=== PATIENT | male | born 1980 | race Caucasian/White ===

== ENCOUNTER 2016-06-26 19:37 | Emergency (ER) | payer BC, OTHER ==
[~2016-06-26] VITALS: Ht 182.9 cm; Wt 113.4 kg
[2016-06-26] MEDS ORDERED: LIRA0.6P3 SC (21:20)
[2016-06-26] MEDS ORDERED: DAPA5TAB PO (21:20)
[2016-06-26] MEDS ORDERED: FLUO20CA25 PO (21:20)
[2016-06-26] MEDS ORDERED: ONDANSETRON 4 MG (ZOFRAN) ORAL DISSOLVE TAB PO ONE (21:30)
[2016-06-26] MEDS ORDERED: HYOSCYAMINE 0.125 MG (LEVSIN) TAB PO ONE (21:30)
[2016-06-26] MEDS ORDERED: NS IV 1000 ML 1,000 ML IV ONE ×2 (21:42→22:24)
[2016-06-26 21:50] LABS: BILIRUBIN,URINE NEGATIVE (NEGATIVE); KETONES,URINE 4+ (NEGATIVE); LEUKOCYTE ESTERASE ,URINE NEGATIVE (NEGATIVE); NITRITE,URINE NEGATIVE (NEGATIVE); PH,URINE 6 (5-9); PROTEIN,URINE 2+ (NEGATIVE); UROBILINOGEN,URINE 1 MG/DL (NORMAL)
[2016-06-26 21:54] LABS: BASOPHILS % (AUTO) 0 % (0-10); EOSINOPHILS % (AUTO) 0 % (0-10); LYMPHOCYTES # (AUTO) 1.6 X 10^3 (1.0-4.0); LYMPHOCYTES % (AUTO) 10 % (12-44); MEAN CORPUSCULAR HEMOGLOBIN 30 PG (25-34); MEAN CORPUSCULAR HGB CONC 36 G/DL (32-36); MEAN CORPUSCULAR VOLUME 83 FL (80-99); MEAN PLATELET VOLUME 9.6 FL (7.4-10.4); MONOCYTES # (AUTO) 0.7 X 10^3 (0.0-1.0); MONOCYTES % (AUTO) 4 % (0-12); NEUTROPHILS # (AUTO) 13.6 X 10^3 (1.8-7.8); NEUTROPHILS % (AUTO) 86 % (42-75); PLATELET COUNT 257 10^3/uL (130-400); RED BLOOD COUNT 5.97 10^6/uL (4.35-5.85); RED CELL DISTRIBUTION WIDTH 12.9 % (10.0-14.5); WHITE BLOOD COUNT 15.9 10^3/uL (4.3-11.0)
[2016-06-26 22:13] LABS: ALANINE AMINOTRANSFERASE 24 U/L (0-55); ALBUMIN 4.7 G/DL (3.2-4.5); AMYLASE 56 U/L (25-125); ANION GAP 19 MMOL/L (5-14); ASPARTATE AMINO TRANSFERASE 17 U/L (5-34); BILIRUBIN,TOTAL 1.6 MG/DL (0.1-1.0); BLOOD UREA NITROGEN 13 MG/DL (7-18); BUN/CREATININE RATIO 13; CARBON DIOXIDE 18 MMOL/L (21-32); CHLORIDE 105 MMOL/L (98-107); GFR ESTIMATED > 60; GLUCOSE 172 MG/DL (70-105); LIPASE 17 U/L (8-78); POTASSIUM 3.7 MMOL/L (3.6-5.0); SODIUM 142 MMOL/L (135-145); TOTAL PROTEIN 7.8 G/DL (6.4-8.2)
[2016-06-26] MEDS ORDERED: FAMOTIDINE 20MG/2ML IV (PEPCID) IV STA (22:24)
[2016-06-26] MEDS ORDERED: KETOROLAC 30 MG/ML VIAL IVP STA (22:24)
[2016-06-26 22:28] LABS: BAND NEUTROPHILS 3 %; BASOPHILS % (MANUAL) 0 %; EOSINOPHILS % (MANUAL) 0 %; LYMPHOCYTES % (MANUAL) 13 %; NEUTROPHILS % (MANUAL) 80 %
[2016-06-26] MEDS ORDERED: ONDANSETRON 4 MG/2 ML (SDV) Z0FRAN IVP ONE (22:30)
[2016-06-26] MEDS ORDERED: NS 100 ML (IVPB) BAG IV ONE (23:15)
[2016-06-26] MEDS ORDERED: IOHEXOL 350 MG/ML 100 ML (OMNIPAQUE 350) VIAL IV ONE (23:15)
[2016-06-26] MEDS ORDERED: PROM25SU43 RC (23:54)
[2016-06-26] MEDS ORDERED: ONDA8TAB9 PO (23:54)
[2016-06-26] MEDS ORDERED: HYOS0.1283 SL (23:54)
--- NOTE | 2016-06-26 23:54 | ED GI ---
General Chief Complaint: Abdominal/GI Problems Stated Complaint: N/V, CHILLS, SOA Nursing Triage Note: c/o n/v/ mid/upper cramping/dull abdominal pain since 1300 Sepsis Screen: No Definite Risk Source of Information: Patient History of Present Illness Time Seen By Provider: 21:24 Initial Comments PT ARRIVES VIA POV FROM HOME C/O NAUSEA/VOMITING SINCE 1300 TODAY-FAIRLY SUDDEN ONSET STATES HE HAS HAD UPPER ABDOMINAL PAIN / CRAMPING WELL NO DIARRHEA NO FEVER, BUT HAS HAD SUBJECTIVE SWEATS AND CHILLS C/O FEELING WEAK AND DIZZY HAS NOT EATEN ANYTHING TODAY--NOT ABLE TO KEEP ANY LIQUIDS DOWN NO VOID FOR SEVERAL HOURS NO KNOWN SICK CONTACTS OR SUSPICIOUS FOODS PT IS DIABETIC, BUT HAS NOT CHECKED HIS BLOOD GLUCOSE TODAY PCP: DR. VILLALPANDO Allergies and Home Medications Allergies Coded Allergies: No Known Drug Allergies (Unverified , 06/26/16) Home Medications Dapagliflozin Propanediol 5 Mg Tablet #30 1 TAB PO UD (Reported) Fluoxetine HCl 20 Mg Capsule #30 1 CAP PO UD (Reported) Hyoscyamine Sulfate 0.125 Mg Tab.subl #15 1-2 TAB SL Q4H Prescribed by: HARDEEP BARTLETT on 06/26/162353 Liraglutide 0.6 Mg/0.1 Ml Pen.injctr #9 1 PACKET SC UD (Reported) Ondansetron 8 Mg Tab.rapdis #14 8 MG PO Q4H Prescribed by: HARDEEP BARTLETT on 06/26/162353 Promethazine HCl 25 Mg Supp.rect #10 25 MG RC Q4H Prescribed by: HARDEEP BARTLETT on 06/26/162353 Review of Systems Constitutional: see HPI chills diaphoresis dizziness malaise weakness EENTM: No Symptoms Reported Respiratory: No Symptoms Reported Cardiovascular: No Symptoms Reported Gastrointestinal: See HPI Abdominal PainDenies Diarrhea, Nausea Poor Appetite Poor Fluid Intake Vomiting Genitourinary: See HPI (DECREASED OUTPUT) Musculoskeletal: no symptoms reported Skin: no symptoms reported Psychiatric/Neurological: No Symptoms Reported Endocrine: No Symptoms Reported Hematologic/Lymphatic: No Symptoms Reported Past Askrlxq-Qahncl-Zvzocm Hx Patient Social History Alcohol Use: Occasionally Uses Recreational Drug Use: No Smoking Status: Former Smoker (1 PPD, QUIT 2009) 2nd Hand Smoke Exposure: No Recent Foreign Travel: No Contact w/Someone Who Travel: No Recent Infectious Disease Expo: No Recent Hopitalizations: No Immunizations Up To Date Tetanus Booster (TDap): Unknown Seasonal Allergies Seasonal Allergies: No Surgeries HX Surgeries: Yes Surgeries: Adenoidectomy, Tonsillectomy Respiratory Hx Respiratory Disorders: No Cardiovascular Hx Cardiac Disorders: No Neurological Hx Neurological Disorders: No Reproductive System Hx Reproductive Disorders: No Genitourinary Hx Genitourinary Disorders: No Gastrointestinal Hx Gastrointestinal Disorders: No Musculoskeletal Hx Musculoskeletal Disorders: No Endocrine Hx Endocrine Disorders: Yes Endocrine Disorders: Diabetes, Non-Insulin dep HEENT HX ENT Disorders: No Cancer Hx Cancer: No Psychosocial Hx Psychiatric Problems: Yes Behavioral Health Disorders: Anxiety Integumentary HX Skin/Integumentary Disorder: No Blood Transfusions Hx Blood Disorders: No Adverse Reaction to a Blood Tr: No Physical Exam Vital Signs VS - Last 72 Hours, by Label 06/26/16 06/26/16 06/27/16 21:20 22:00 00:06 Temp 97.1 98.1 Pulse 70 64 69 82 105 Resp 18 18 B/P 131/86 Pulse Ox 96 97 O2 Delivery Room Air Capillary Refill : Less Than 3 Seconds General Appearance: WD/WN no apparent distress HEENT: other (ORAL MUCOSA DRY. ) Neck: normal inspection Respiratory: normal breath sounds no respiratory distress no accessory muscle use Cardiovascular: normal peripheral pulses regular rate, rhythm no edema no JVD no murmur Gastrointestinal: normal bowel sounds soft no organomegaly no pulsatile massNo distended, No guarding, No rebound, tenderness (DIFFUSE UPPER ABDOMINAL TENDERNESS)No hernia, No mass Extremities: normal inspection Back: normal inspection no CVA tenderness Neurologic/Psychiatric: no motor/sensory deficits alert normal mood/affect oriented x 3 Skin: warm/dry pallor Progress/Results/Core Measures Results/Orders Lab Results Laboratory Tests Test 06/26/16 21:15 06/26/16 21:49 06/26/16 21:50 Range/Units Urine Bacteria NONE /HPF Urine Bilirubin NEGATIVE NEGATIVE Urine Casts NONE /LPF Urine Clarity CLEAR Urine Color YELLOW Urine Crystals NONE /LPF Urine Culture Indicated NO Urine Glucose (UA) 1+ H NEGATIVE Urine Ketones 4+ H NEGATIVE Urine Leukocyte Esterase NEGATIVE NEGATIVE Urine Mucus SMALL H /LPF Urine Nitrite NEGATIVE NEGATIVE Urine Protein 2+ H NEGATIVE Urine RBC NONE /HPF Urine RBC (Auto) NEGATIVE NEGATIVE Urine Specific [place] 1.020 1.016-1.022 Urine Urobilinogen 1 NORMAL MG/DL Urine WBC NONE /HPF Urine pH 6 5-9 Glucometer 157 H 70-110 MG/DL Alanine Aminotransferase (ALT/SGPT) 24 0-55 U/L Albumin 4.7 H 3.2-4.5 G/DL Alkaline Phosphatase 52 40-136 U/L Amylase Level 56 25-125 U/L Anion Gap 19 H 5-14 MMOL/L Aspartate Amino Transf (AST/SGOT) 17 5-34 U/L BUN/Creatinine Ratio 13 Band Neutrophils 3 % Basophils # (Auto) 0.0 0.0-0.1 10^3/uL Basophils % (Manual) 0 % Basophils (%) (Auto) 0 0-10 % Blood Morphology Comment NORMAL Blood Urea Nitrogen 13 7-18 MG/DL Calcium Level 10.0 8.5-10.1 MG/DL Carbon Dioxide Level 18 L 21-32 MMOL/L Chloride Level 105 98-107 MMOL/L Creatinine 1.00 0.60-1.30 MG/DL Eosinophils # (Auto) 0.0 0.0-0.3 10^3/uL Eosinophils % (Manual) 0 % Eosinophils (%) (Auto) 0 0-10 % Estimat Glomerular Filtration Rate > 60 Glucose Level 172 H 70-105 MG/DL Hematocrit 50 40-54 % Hemoglobin 17.7 13.3-17.7 G/DL Lipase 17 8-78 U/L Lymphocytes # (Auto) 1.6 1.0-4.0 X 10^3 Lymphocytes % (Manual) 13 % Lymphocytes (%) (Auto) 10 L 12-44 % Mean Corpuscular Hemoglobin 30 25-34 PG Mean Corpuscular Hemoglobin Concent 36 32-36 G/DL Mean Corpuscular Volume 83 80-99 FL Mean Platelet Volume 9.6 7.4-10.4 FL Monocytes # (Auto) 0.7 0.0-1.0 X 10^3 Monocytes % (Manual) 4 % Monocytes (%) (Auto) 4 0-12 % Neutrophils # (Auto) 13.6 H 1.8-7.8 X 10^3 Neutrophils % (Manual) 80 % Neutrophils (%) (Auto) 86 H 42-75 % Platelet Count 257 130-400 10^3/uL Potassium Level 3.7 3.6-5.0 MMOL/L Red Blood Count 5.97 H 4.35-5.85 10^6/uL Red Cell Distribution Width 12.9 10.0-14.5 % Sodium Level 142 135-145 MMOL/L Total Bilirubin 1.6 H 0.1-1.0 MG/DL Total Protein 7.8 6.4-8.2 G/DL White Blood Count 15.9 H 4.3-11.0 10^3/uL My Orders Orders-HARDEEP BARTLETT DO Hyoscyamine Sl Tablet (Levsin Sl Tablet) (06/26/16 21:30) Ondansetron Oral Dissolve Tab (Zofran (06/26/16 21:30) Orthostatic Vital Signs (06/26/16 21:26) Accucheck Stat ONCE (06/26/16 21:42) Saline Lock/Iv-Start (06/26/16 21:42) Amylase (06/26/16 21:42) Cbc With Automated Diff (06/26/16 21:42) Comprehensive Metabolic Panel (06/26/16 21:42) Lipase (06/26/16 21:42) Ua Culture If Indicated (06/26/16 21:42) Saline Lock/Iv-Start (06/26/16 21:42) Ns Iv 1000 Ml (Sodium Chloride 0.9%) (06/26/16 21:42) Manual Differential (06/26/16 21:50) Ct Abdomen/Pelvis W (06/26/16 22:22) Ketorolac Injection (Toradol Injection) (06/26/16 22:24) Ondansetron Injection (Zofran Injectio (06/26/16 22:30) Famotidine Injection (Pepcid Injection) (06/26/16 22:24) Saline Lock/Iv-Start (06/26/16 22:24) Ns Iv 1000 Ml (Sodium Chloride 0.9%) (06/26/16 22:24) Iohexol Injection (Omnipaque 350 Mg/Ml 1 (06/26/16 23:15) Ns (Ivpb) (Sodium Chloride 0.9% Ivpb Bag (06/26/16 23:15) Rx-Hyoscyamine Tab (Rx-Levsin Sl) (06/27/16 00:23) Rx-Ondansetron Po (Rx-Zofran Po) (06/27/16 00:23) Rx-Promethazine Hcl (Rx-Phenergan Supp) (06/27/16 00:23) Medications Given in ED Current Medications Medications Dose Ordered Sig/Larisa Route Start Time Stop Time Status Last Admin Dose Admin Hyoscyamine Sulfate 0.125 mg ONCE ONCE PO 06/26/16 21:30 06/26/16 21:31 DC 06/26/16 21:42 0.125 MG Iohexol 100 ml ONCE ONCE IV 06/26/16 23:15 06/26/16 23:16 DC 06/26/16 23:18 100 ML Ondansetron HCl 4 mg 4 mg ONCE ONCE IVP 06/26/16 22:30 06/26/16 22:31 DC 06/26/16 22:34 4 MG Ondansetron HCl 4 mg 4 mg ONCE ONCE PO 06/26/16 21:30 06/26/16 21:31 DC 06/26/16 21:42 4 MG Sodium Chloride 100 ml ONCE ONCE IV 06/26/16 23:15 06/26/16 23:16 DC 06/26/16 23:18 80 ML Sodium Chloride 1,000 ml @ 0 mls/hr Q0M ONCE IV 06/26/16 21:42 06/26/16 21:43 DC 06/26/16 21:45 0 MLS/HR Sodium Chloride 1,000 ml @ 0 mls/hr Q0M ONCE IV 06/26/16 22:24 06/26/16 22:26 DC 06/26/16 22:34 0 MLS/HR Vital Signs/I&O Vital Sign - Last 12Hours 06/26/16 06/26/16 06/27/16 21:20 22:00 00:06 Temp 97.1 98.1 Pulse 70 64 69 82 105 Resp 18 18 B/P 131/86 Pulse Ox 96 97 O2 Delivery Room Air Intake and Output 06/27/16 00:00 Intake Total 2000 ml Balance 2000 ml Blood Pressure Mean: 101 Point of Care Testing Finger Stick Blood Glucose: 157 Blood Glucose Action Taken: RN AWARE Progress Note : Progress Note NO VOMITING DURING ER STAY PAIN AND NAUSEA RESOLVED AT DISMISSAL PT TOLERATING ICE CHIPS AND SIPS OF WATER PRIOR TO DISMISSAL Diagnostic Imaging Comments CT ABDOMEN/PELVIS--NO ACUTE PROCESS, FATTY LIVER. PER [facility] VIA FAX @ 2272 Reviewed: Reviewed by Me Departure Impression Impression: Primary Impression: Gastroenteritis Disposition: 01 HOME, SELF-CARE Condition: Improved Departure-Patient Inst. Referrals: AMRITA VILLALPANDO MD (PCP/Family) Primary Care Physician Patient Instructions: Viral Gastroenteritis, Adult (DC) Add. Discharge Instructions: CLEAR LIQUIDS--WATER, BROTH, JELLO, GATORADE BRATS DIET--BANANAS, RICE, APPLESAUCE, TOAST, SALTINES FOLLOW UP WITH YOUR DR IN 1-2 DAYS IF NO BETTER RETURN TO ER IF WORSE All discharge instructions reviewed with patient and/or family. Voiced understanding. Scripts Hyoscyamine Sulfate (Levsin-Sl)0.125 Mg Tab.subl1-2 Tab SL Q4H Abdominal Pain # 15 TAB Prov:HARDEEP BARTLETT DO 06/26/16 Promethazine HCl (Phenergan)25 Mg Supp.rect25 Mg RC Q4H Nausea/Vomiting #10 SUPP.RECT Prov:HARDEEP BARTLETT DO 06/26/16 Ondansetron (Zofran Odt)8 Mg Tab.rapdis8 Mg PO Q4H Nausea/Vomiting #14 TAB Prov:HARDEEP BARTLETT DO 06/26/16 HARDEEP BARTLETT DO Jun 26, 2016 23:54
[2016-06-27 00:06] VITALS: BP 135/83
[2016-06-27] MEDS ORDERED: RX-PHENERGAN 25 MG SUPP PPK#3 PR STA (00:23)
[2016-06-27] MEDS ORDERED: RX-ONDANSETRON 4 MG ODT (ZOFRAN) PPK #4 PO STA (00:23)
[2016-06-27] MEDS ORDERED: RX-HYOSCYAMINE 0.125 MG SL (LEVSIN) PPK#6 SL STA (00:23)
--- NOTE | 2016-06-27 06:56 | Diagnostic Imaging Report ---
PROCEDURE: CT abdomen and pelvis with contrast. TECHNIQUE: Multiple contiguous axial images were obtained through the abdomen and pelvis after administration of intravenous contrast. INDICATION: Nausea, vomiting. FINDINGS: The appendix visualized and normal. There are few noninflamed diverticuli of the sigmoid. No ascites, abscess, hematoma or other fluid collection. Some fluid within the small bowel lumen without obstructive features. There is some fluid in the gastric lumen without wall thickening or perigastric edema. Findings nonspecific but raise the question of nonspecific gastroenteritis correlate clinically. The liver, gallbladder, bile ducts, spleen, adrenals and pancreas all nonacute. The aortoiliac and mesenteric vessels patent and nonaneurysmal. Prostate, seminal vesicles and urinary bladder unremarkable. IMPRESSION: Negative appendix. Fluid within the stomach and small bowel raising the question of gastroenteritis. No obstructive features or findings of viscus perforation. No ascites or fluid collection. Dictated by: Dictated on workstation # [id number]
== END 2016-06-27 00:05 | disposition home or self-care (01) ==
LOC: ER 19:40
DX: K52.9 Noninfective gastroenteritis and colitis, unspecified (principal); E11.9 Type 2 diabetes mellitus without complications; Z79.84 Long term (current) use of oral hypoglycemic drugs; Z87.891 Personal history of nicotine dependence
CPT/HCPCS: 36415; 74177; 80053; 81000; 82150; 82962; 83690; 85007; 85027; 96361; 96374; 96375

== ENCOUNTER 2017-05-17 23:25 | Emergency (ER) | payer BC ==
[~2017-05-17] VITALS: Ht 182.9 cm; Wt 104.3 kg
[~2017-05-17 23:25] MED LIST: DAPA5TAB PO; FLUO20CA25 PO; HYOS0.1283 SL; LIRA0.6P3 SC; ONDA8TAB9 PO; PROM25SU43 RC
[2017-05-17] MEDS ORDERED: NS IV 1000 ML 1,000 ML IV ONE (23:46)
[2017-05-18] MEDS ORDERED: ONDANSETRON 4 MG/2 ML (SDV) Z0FRAN IVP ONE
[2017-05-18 00:14] LABS: BILIRUBIN,URINE NEGATIVE (NEGATIVE); KETONES,URINE 4+ (NEGATIVE); LEUKOCYTE ESTERASE ,URINE 2+ (NEGATIVE); NITRITE,URINE NEGATIVE (NEGATIVE); PH,URINE 5 (5-9); PROTEIN,URINE 1+ (NEGATIVE); UROBILINOGEN,URINE 1 MG/DL (NORMAL)
[2017-05-18 00:16] LABS: BASOPHILS # (AUTO) 0.1 10^3/uL (0.0-0.1); BASOPHILS % (AUTO) 0 % (0-10); EOSINOPHILS # (AUTO) 0.3 10^3/uL (0.0-0.3); EOSINOPHILS % (AUTO) 1 % (0-10); LYMPHOCYTES # (AUTO) 3.2 X 10^3 (1.0-4.0); LYMPHOCYTES % (AUTO) 16 % (12-44); MEAN CORPUSCULAR HEMOGLOBIN 30 PG (25-34); MEAN CORPUSCULAR HGB CONC 35 G/DL (32-36); MEAN CORPUSCULAR VOLUME 85 FL (80-99); MEAN PLATELET VOLUME 9.9 FL (7.4-10.4); MONOCYTES # (AUTO) 0.9 X 10^3 (0.0-1.0); MONOCYTES % (AUTO) 4 % (0-12); NEUTROPHILS # (AUTO) 15.5 X 10^3 (1.8-7.8); NEUTROPHILS % (AUTO) 78 % (42-75); PLATELET COUNT 238 10^3/uL (130-400); RED BLOOD COUNT 5.63 10^6/uL (4.35-5.85); RED CELL DISTRIBUTION WIDTH 12.5 % (10.0-14.5); WHITE BLOOD COUNT 19.9 10^3/uL (4.3-11.0)
[2017-05-18 00:22] LABS: SQUAMOUS EPITHELIAL CELL,UR RARE /HPF; WBC,URINE 0-2 /HPF
[2017-05-18 00:33] LABS: BAND NEUTROPHILS 1 %; BASOPHILS % (MANUAL) 0 %; EOSINOPHILS % (MANUAL) 0 %; LYMPHOCYTES % (MANUAL) 6 %; NEUTROPHILS % (MANUAL) 79 %; REACTIVE LYMPHOCYTES 8 %
[2017-05-18 00:39] LABS: ALANINE AMINOTRANSFERASE 28 U/L (0-55); ALBUMIN 4.6 GM/DL (3.2-4.5); ANION GAP 15 MMOL/L (5-14); ASPARTATE AMINO TRANSFERASE 18 U/L (5-34); BLOOD UREA NITROGEN 10 MG/DL (7-18); BUN/CREATININE RATIO 12; CALCIUM 9.5 MG/DL (8.5-10.1); CARBON DIOXIDE 18 MMOL/L (21-32); CHLORIDE 110 MMOL/L (98-107); CREATININE SERUM 0.83 MG/DL (0.60-1.30); GFR ESTIMATED > 60; GLUCOSE 189 MG/DL (70-105); MAGNESIUM 1.9 MG/DL (1.8-2.4); POTASSIUM 3.7 MMOL/L (3.6-5.0); SODIUM 143 MMOL/L (135-145); TOTAL PROTEIN 7.4 GM/DL (6.4-8.2)
[2017-05-18] MEDS ORDERED: PROMETHAZINE INJ 25 MG/ML (PHENERGAN) AMP IVP STA (01:26)
[2017-05-18] MEDS ORDERED: NS IV 1000 ML 1,000 ML IV STA (01:26)
[2017-05-18] MEDS ORDERED: HYOSCYAMINE 0.125 MG (LEVSIN) TAB SL ONE (01:45)
--- NOTE | 2017-05-18 01:46 | ED General ---
General Chief Complaint: General Problems/Pain Stated Complaint: N/V Nursing Triage Note: PT TO ED 10 W/ PARENT FOR C/O NAUSEA, DRY HEAVES, SWEATING, CHILLING ONSET 1999 THIS EVENING. NO OTHER C/O VOICED Nursing Sepsis Screen: No Definite Risk Source of Information: Patient Exam Limitations: No Limitations History of Present Illness Time Seen by Provider: 00:40 Initial Comments Here with report of acute onset of nausea, vomiting, chills and sweating that started at about 8 p.m. and persisted since. Has history of similar episodes twice this year. Patient is a diabetic and has been told that he might have gastroparesis. States that he feels like there is a pit and his stomach with report of nausea and the dry heaves. He was unable to eat dinner. All of this was exacerbated when he went to the restaurant [employer] and it was very hot and there and then he started getting the nausea and dry heaves. This has not resolved yet. Denies breathing problems or chest pain. Timing/Duration: 4-6 Hours Severity: Moderate, Severe Associated Systoms: No Chest Pain, Diaphoresis, Fever/Chills, Nausea/Vomiting, No Shortness of Air, No Weakness Allergies and Home Medications Allergies Coded Allergies: No Known Drug Allergies (Unverified , 06/26/16) Home Medications Dapagliflozin Propanediol 5 Mg Tablet, 1 TAB PO UD, #30 (Reported) Fluoxetine HCl 20 Mg Capsule, 1 CAP PO UD, #30 (Reported) Hyoscyamine Sulfate 0.125 Mg Tab.subl, 1-2 TAB SL Q4H, #15 Prescribed by: HARDEEP BARTLETT on 06/26/162353 Liraglutide 0.6 Mg/0.1 Ml Pen.injctr, 1 PACKET SC UD, #9 (Reported) Ondansetron 8 Mg Tab.rapdis, 8 MG PO Q4H, #14 Prescribed by: HARDEEP BARTLETT on 06/26/162353 Promethazine HCl 25 Mg Supp.rect, 25 MG RC Q4H, #10 Prescribed by: HARDEEP BARTLETT on 06/26/164 Constitutional: see HPI, chills, diaphoresis, No fever EENTM: no symptoms reported Respiratory: no symptoms reported Cardiovascular: no symptoms reported Gastrointestinal: see HPI, abdominal pain, No constipation, No diarrhea, nausea , vomiting Genitourinary: no symptoms reported Musculoskeletal: no symptoms reported Skin: no symptoms reported All Other Systems Reviewed Negative Unless Noted: Yes Past Jdeslrh-Qulsyo-Ncpzyw Hx Patient Social History Alcohol Use: Denies Use Recreational Drug Use: No Smoking Status: Never a Smoker 2nd Hand Smoke Exposure: No Recent Foreign Travel: No Contact w/Someone Who Travel: No Recent Infectious Disease Expo: No Recent Hopitalizations: No Physical Abuse: No Sexual Abuse: No Mistreated: No Fear: No Immunizations Up To Date Tetanus Booster (TDap): Unknown Seasonal Allergies Seasonal Allergies: No Surgeries History of Surgeries: Yes Surgeries: Adenoidectomy, Tonsillectomy Respiratory History of Respiratory Disorde: No Cardiovascular History of Cardiac Disorders: No Neurological History of Neurological Disord: No Reproductive System Hx Reproductive Disorders: No Gastrointestinal History of Gastrointestinal Di: No Musculoskeletal History of Musculoskeletal Dis: No Endocrine History of Endocrine Disorders: Yes Endocrine Disorders: Diabetes, Non-Insulin dep Cancer History of Cancer: No Psychosocial History of Psychiatric Problem: Yes Behavioral Health Disorders: Anxiety Suicide Risk Score: 0 Integumentary History of Skin or Integumenta: No Blood Transfusions History of Blood Disorders: No Adverse Reaction to a Blood Tr: No Reviewed Nursing Assessment Reviewed/Agree w Nursing PMH: Yes Family Medical History Significant Family History: No Pertinent Family Hx Physical Exam Vital Signs Vital Sign - Last 12Hours 05/17/17 23:40 Temp 93.7 Pulse 68 Resp 20 B/P (MAP) 163/91 (115) Pulse Ox 99 O2 Delivery Room Air Capillary Refill : Less Than 3 Seconds General Appearance: WD/WN, Mild Distress HEENT: PERRL/EOMI, Pharynx Normal Neck: Non Tender, Supple Respiratory: Lungs Clear, Normal Breath Sounds Cardiovascular: Regular Rate, Rhythm, No Murmur Gastrointestinal: Normal Bowel Sounds, Soft, Tenderness (epigastric region) Back: Normal Inspection, No CVA Tenderness, No Vertebral Tenderness Extremity: Normal Range of Motion, Non Tender, No Calf Tenderness Neurologic/Psychiatric: Alert, Oriented x3, Normal Mood/Affect Skin: Normal Color, Warm/Dry Progress/Results/Core Measures Suspected Sepsis Recent Fever Within 48 Hours: No Infection Criteria Present: None New/Unexplained Altered Menta: No Sepsis Screen: No Definite Risk Sepsis Diagnosis: SIRS Temperature:93.7 Pulse: 68 Respiratory Rate: 20 Laboratory Tests 05/18/17 00:07: White Blood Count 19.9H Blood Pressure 163 /91 Mean: 115 Laboratory Tests 05/18/17 00:07: Creatinine 0.83, Platelet Count 238, Total Bilirubin 1.0 Results/Orders Lab Results Laboratory Tests Test 05/17/17 23:54 05/18/17 00:04 05/18/17 00:07 Range/Units Glucometer 177 H 70-110 MG/DL Urine Color YELLOW Urine Clarity SLIGHTLY CLOUDY Urine pH 5 5-9 Urine Specific [place] 1.020 1.016-1.022 Urine Protein 1+ H NEGATIVE Urine Glucose (UA) NEGATIVE NEGATIVE Urine Ketones 4+ H NEGATIVE Urine Nitrite NEGATIVE NEGATIVE Urine Bilirubin NEGATIVE NEGATIVE Urine Urobilinogen 1 NORMAL MG/DL Urine Leukocyte Esterase 2+ H NEGATIVE Urine RBC (Auto) NEGATIVE NEGATIVE Urine RBC NONE /HPF Urine WBC 0-2 /HPF Urine Squamous Epithelial Cells RARE /HPF Urine Crystals NONE /LPF Urine Bacteria TRACE /HPF Urine Casts NONE /LPF Urine Mucus SMALL H /LPF Urine Culture Indicated NO White Blood Count 19.9 H 4.3-11.0 10^3/uL Red Blood Count 5.63 4.35-5.85 10^6/uL Hemoglobin 17.0 13.3-17.7 G/DL Hematocrit 48 40-54 % Mean Corpuscular Volume 85 80-99 FL Mean Corpuscular Hemoglobin 30 25-34 PG Mean Corpuscular Hemoglobin Concent 35 32-36 G/DL Red Cell Distribution Width 12.5 10.0-14.5 % Platelet Count 238 130-400 10^3/uL Mean Platelet Volume 9.9 7.4-10.4 FL Neutrophils (%) (Auto) 78 H 42-75 % Lymphocytes (%) (Auto) 16 12-44 % Monocytes (%) (Auto) 4 0-12 % Eosinophils (%) (Auto) 1 0-10 % Basophils (%) (Auto) 0 0-10 % Neutrophils # (Auto) 15.5 H 1.8-7.8 X 10^3 Lymphocytes # (Auto) 3.2 1.0-4.0 X 10^3 Monocytes # (Auto) 0.9 0.0-1.0 X 10^3 Eosinophils # (Auto) 0.3 0.0-0.3 10^3/uL Basophils # (Auto) 0.1 0.0-0.1 10^3/uL Neutrophils % (Manual) 79 % Lymphocytes % (Manual) 6 % Monocytes % (Manual) 6 % Eosinophils % (Manual) 0 % Basophils % (Manual) 0 % Band Neutrophils 1 % Reactive Lymphocytes 8 % Blood Morphology Comment NORMAL Sodium Level 143 135-145 MMOL/L Potassium Level 3.7 3.6-5.0 MMOL/L Chloride Level 110 H 98-107 MMOL/L Carbon Dioxide Level 18 L 21-32 MMOL/L Anion Gap 15 H 5-14 MMOL/L Blood Urea Nitrogen 10 7-18 MG/DL Creatinine 0.83 0.60-1.30 MG/DL Estimat Glomerular Filtration Rate > 60 BUN/Creatinine Ratio 12 Glucose Level 189 H 70-105 MG/DL Calcium Level 9.5 8.5-10.1 MG/DL Magnesium Level 1.9 1.8-2.4 MG/DL Total Bilirubin 1.0 0.1-1.0 MG/DL Aspartate Amino Transf (AST/SGOT) 18 5-34 U/L Alanine Aminotransferase (ALT/SGPT) 28 0-55 U/L Alkaline Phosphatase 53 40-136 U/L Total Protein 7.4 6.4-8.2 GM/DL Albumin 4.6 H 3.2-4.5 GM/DL Micro Results Microbiology 05/17/17 Influenza Types A,B Antigen (KAELYN) - Final, Complete My Orders Orders - KENTON ACOSTA MD Saline Lock/Iv-Start (05/17/17 23:46) Ns Iv 1000 Ml (Sodium Chloride 0.9%) (05/17/17 23:46) Cbc With Automated Diff (05/17/17 23:46) Comprehensive Metabolic Panel (05/17/17 23:46) Magnesium (05/17/17 23:46) Ua Culture If Indicated (05/17/17 23:46) Influenza A And B Antigens (05/17/17 23:46) Ondansetron Injection (Zofran Injectio (05/18/17 00:00) Manual Differential (05/18/17 00:07) Promethazine Injection (Phenergan Injec (05/18/17 01:26) Ns Iv 1000 Ml (Sodium Chloride 0.9%) (05/18/17 01:26) Hyoscyamine Sl Tablet (Levsin Sl Tablet) (05/18/17 01:45) Medications Given in ED Current Medications Medications Dose Ordered Sig/Larisa Route Start Time Stop Time Status Last Admin Dose Admin Hyoscyamine Sulfate 0.125 mg ONCE ONCE SL 05/18/17 01:45 05/18/17 01:46 DC 05/18/17 01:46 0.125 MG Ondansetron HCl 4 mg ONCE ONCE IVP 05/18/17 00:00 05/18/17 00:01 DC 05/18/17 00:15 4 MG Sodium Chloride 1,000 ml @ 0 mls/hr Q0M ONCE IV 05/17/17 23:46 05/17/17 23:48 DC 05/18/17 00:07 1,000 MLS/HR Vital Signs/I&O Vital Sign - Last 12Hours 05/17/17 23:40 Temp 93.7 Pulse 68 Resp 20 B/P (MAP) 163/91 (115) Pulse Ox 99 O2 Delivery Room Air Capillary Refill : Less Than 3 Seconds Blood Pressure Mean: 115 Progress Note : Progress Note Seen and evaluated. IV, labs and UA ordered. Fingerstick blood sugar ordered. Normal saline 1 L bolus. Zofran 4 mg IV ordered. Monitor patient. Repeat normal saline 1 L bolus, Phenergan 25 mg IV for persistent nausea and Levsin 0.125 milligrams by mouth for cramping. Monitor patient. 0230: Patient states he is much better now. Discharge home with return precautions. Patient verbalize understanding instructions and agreement with plan. Departure Impression Impression: Primary Impression: Nausea and vomiting Qualified Codes: R11.2 - Nausea with vomiting, unspecified Additional Impression: Epigastric abdominal pain Disposition: HOME, SELF-CARE Condition: Improved Departure-Patient Inst. Decision time for Depature: 02:39 Referrals: AMRITA VILLALPANDO MD (PCP/Family) Primary Care Physician Patient Instructions: Gastroparesis (Delayed Gastric Emptying) (DC), Nausea and Vomiting, Adult (DC) Add. Discharge Instructions: All discharge instructions reviewed with patient and/or family. Voiced understanding. Clear liquid diet for 24 hours and then advance as tolerated. Follow-up with your DrTamica in one to 2 days for recheck and further evaluation. Return for worse pain, fever, vomiting, weakness, breathing problems or other concerns as needed. Scripts Ondansetron (Ondansetron Odt) 4 Mg Tab.rapdis 4 MG PO Q6H Y for NAUSEA/VOMITING, #8 TAB 0 Refills Prov: KENTON ACOSTA MD 05/18/17 Hyoscyamine Sulfate (Levsin-Sl) 0.125 Mg Tab.subl 0.125 MG SL Q4H, #10 TAB 0 Refills Prov: KENTON ACOSTA MD 05/18/17 Copy Copies To 1: AMRITA VILLALPANDO MD, TIMOTHY D MD May 18, 2017 01:45
[2017-05-18] MEDS ORDERED: RX-ONDANSETRON 4 MG ODT (ZOFRAN) PPK #4 PO STA (02:37)
[2017-05-18] MEDS ORDERED: HYOS0.1283 SL (02:41)
[2017-05-18] MEDS ORDERED: ONDA4TAB11 PO (02:41)
[2017-05-18 02:44] VITALS: BP 141/88
== END 2017-05-18 02:44 | disposition home or self-care (01) ==
LOC: EDUNIT# 23:25 → ER 23:28
DX: R11.2 Nausea with vomiting, unspecified (principal); R10.13 Epigastric pain; E11.9 Type 2 diabetes mellitus without complications; F41.9 Anxiety disorder, unspecified; Z90.89 Acquired absence of other organs
CPT/HCPCS: 36415; 80053; 81000; 82962; 83735; 85007; 85027; 87804; 96361; 96374; 96375

== ENCOUNTER → 2017-07-13 | Outpatient (CLI) | payer BC ==
[~2017-07-13] MED LIST changes: +IOHEXOL 350 MG/ML 100 ML (OMNIPAQUE 350) VIAL IV ONE; +NS 250 ML (IVPB) BAG IV ONE; +ONDA4TAB11 PO
--- NOTE | 2017-07-13 13:15 | Diagnostic Imaging Report ---
PROCEDURE: CT abdomen and pelvis with contrast. TECHNIQUE: Multiple contiguous axial images were obtained through the abdomen and pelvis after administration of intravenous contrast. INDICATION: Abdominal pain, elevated white blood cell count, elevated lipase. COMPARISON: Study compared to 06/26/2016. FINDINGS: The pancreas and the peripancreatic fat remain unremarkable. Liver parenchyma appeared nonfocal and unremarkable. No dense stone within the gallbladder lumen. The gallbladder is nondilated, its wall non thickened. There is no intra or extrahepatic bile duct dilatation. The adrenals and spleen are negative. The aortoiliac and mesenteric vessels are patent and nonaneurysmal. The air-containing appendix is visualized and normal. There are few diverticula at the sigmoid but no convincing evidence for active or acute diverticulitis. The previous mildly elevated gastric and small bowel fluid luminal load has resolved. No findings of ileus or obstruction. No small or large bowel wall thickening and no perienteric or pericolonic edema. There is no focal inflammatory process. There is no ascites, pseudocyst, or acute fluid collection. There is some slight lingular atelectasis in the left base anteroinferiorly. The lower lobes are otherwise clear. IMPRESSION: No evidence for pancreatitis, biliary dilatation, bowel obstruction, or acute diverticulitis. No inflammatory process, obstructive features, or acute-appearing abnormalities are identified. Dictated by: Dictated on workstation # [id number]
== END ==
LOC: RAD 09:22
PROVIDERS: ATTEND Nurse Practitioner Family
DX: D72.829 Elevated white blood cell count, unspecified (principal); R10.11 Right upper quadrant pain; R74.8 Abnormal levels of other serum enzymes
CPT/HCPCS: 74177

== ENCOUNTER → 2017-07-13 | Outpatient (CLI) | payer BC ==
[~2017-07-13] VITALS: Ht 182.9 cm; Wt 104.3 kg
[~2017-07-13] MED LIST changes: -IOHEXOL 350 MG/ML 100 ML (OMNIPAQUE 350) VIAL IV ONE; -NS 250 ML (IVPB) BAG IV ONE; +NS IV 1000 ML 1,000 ML IV ONE; +NS IV 1000 ML 1,000 ML ONE
[2017-07-13 11:51] VITALS: BP 133/88
== END ==
LOC: SDC 10:23
DX: E86.0 Dehydration (principal)
CPT/HCPCS: 96523